=== PATIENT | female | born 1980 | race Two or more races ===

== ENCOUNTER 2020-07-09 09:01 | Outpatient (CLI) | payer OTHER | END 2020-07-09 09:22 | disposition home or self-care (01) | LOC: MAMO-SONO 09:01 | PROVIDERS: ATTEND Obstetrics & Gynecology | DX: Z12.31 Encounter for screening mammogram for malignant neoplasm of breast (principal); N60.11 Diffuse cystic mastopathy of right breast; N60.12 Diffuse cystic mastopathy of left breast ==

== ENCOUNTER 2022-02-24 09:47 | Outpatient (CLI) | payer OTHER | END 2022-02-24 10:01 | disposition home or self-care (01) | LOC: MAMO-SONO 09:47 | PROVIDERS: ATTEND Obstetrics & Gynecology | DX: N60.11 Diffuse cystic mastopathy of right breast (principal); N60.12 Diffuse cystic mastopathy of left breast ==

== ENCOUNTER 2023-05-02 12:36 | Outpatient (CLI) | payer OTHER | END 2023-05-02 12:53 | disposition home or self-care (01) | LOC: MAMO-SONO 12:36 | PROVIDERS: ATTEND Obstetrics & Gynecology | DX: N60.11 Diffuse cystic mastopathy of right breast (principal); N60.12 Diffuse cystic mastopathy of left breast ==

== ENCOUNTER 2024-08-15 10:12 | Outpatient (CLI) | payer OTHER | END 2024-08-15 10:20 | disposition home or self-care (01) | LOC: MAMO-SONO 10:12 | PROVIDERS: ATTEND Obstetrics & Gynecology | DX: N60.11 Diffuse cystic mastopathy of right breast (principal); N60.12 Diffuse cystic mastopathy of left breast ==